=== PATIENT | male | born 1970 | race Caucasian/White ===

== ENCOUNTER → 2021-05-03 | Outpatient (CLI) | payer OTHER ==
--- NOTE | 2021-05-03 12:58 | DIREP ---
PROCEDURE:MRI SPINE LUMBAR W/O COMPARISON:None. INDICATIONS:RADICULOPATHY, LOW BACK PAIN TECHNIQUE:A comprehensive examination was performed utilizing a variety of imaging planes and imaging parameters to optimize visualization of suspected pathology. Images were performed without intravenous gadolinium contrast. FINDINGS: ALIGNMENT:4 mm retrolisthesis of L5 on S1. VERTEBRA:No fracture, pars defect, or osseous lesion. CORD/CAUDA EQUINA:Normal size, contour, and signal intensity. PARASPINAL AREA:Normal with no visible mass. OTHER:Incidental note made of disc bulges at T11-12.. LUMBAR DISC LEVELS T12-L1:No significant disc/facet abnormality, spinal stenosis, or foraminal stenosis. L1-L2:No significant disc/facet abnormality, spinal stenosis, or foraminal stenosis. L2-L3:No significant disc/facet abnormality, spinal stenosis, or foraminal stenosis. L3-L4:No significant disc abnormality, spinal stenosis or foraminal stenosis. Mild facet arthropathy. L4-L5:Disc bulge extending into the neural foramina. Moderate facet arthropathy. Findings combine to produce mild spinal stenosis and mild bilateral neural foraminal narrowing. L5-S1:Broad-based central/biforaminal disc protrusion extending into the floor of the neural foramina producing mild bilateral neural foraminal narrowing and mild central canal stenosis. Minimal facet arthropathy. Broad-based protrusion nearly contacts the traversing right S1 nerve root. CONCLUSION: 1. Broad-based L5-S1 disc protrusion nearly contacts the right S1 nerve root, correlate for right S1 radiculopathy. 2. Degenerative changes at L5-S1 producing mild bilateral neural foraminal narrowing and mild central canal stenosis. 3. Mild L4-5 spinal stenosis and mild L4-5 neural foraminal narrowing. 4. Retrolisthesis of L5 on S1 appears degenerative. Dictated by: Augie Saab M.D. on 05/03/2021 at 12:45 PM
== END | disposition home or self-care (01) ==
LOC: RAD 09:38
PROVIDERS: ATTEND Anesthesiology Pain Medicine
DX: M51.37 Other intervertebral disc degeneration, lumbosacral region (principal); M47.26 Other spondylosis with radiculopathy, lumbar region; M47.27 Other spondylosis with radiculopathy, lumbosacral region; M48.061 Spinal stenosis, lumbar region without neurogenic claudication; M51.36 Other intervertebral disc degeneration, lumbar region; M48.07 Spinal stenosis, lumbosacral region
CPT/HCPCS: 72148

== ENCOUNTER → 2021-12-30 | Outpatient (CLI) | payer OTHER ==
--- NOTE | 2021-12-30 12:54 | DIREP ---
PROCEDURE:XRAY SPINE LUMBAR COMPLETE W/ BENDING COMPARISON:None. INDICATIONS:M54.17 RADICULOPATHY TECHNIQUE:AP, lateral, L5-S1 spot views of lumbar spine. Flexion and extension views were also obtained. FINDINGS: ALIGNMENT:Preserved lordosis. VERTEBRAE:The vertebral heights are preserved. DISK SPACES:Disc space narrowing with a vacuum phenomenon at L5-S1. Mild facet hypertrophy at L4-5 and L5-S1. SPONDYLOLISTHESIS:No spondylolisthesis in neutral position. There is trace anterolisthesis of L4 on L5 during extension and flexion maneuvers which may represent some degree of ligamentous instability. SACROILIAC JOINTS:Normal. OTHER:Cholecystectomy clips. CONCLUSION: Mild degenerative change of the lower lumbar spine. Trace anterolisthesis of L4 on L5 during flexion and extension maneuvers which may be on the basis of ligamentous instability. Dictated by: Edilberto Calero MD on 12/30/2021 at 12:51 PM
== END | disposition home or self-care (01) ==
LOC: RAD 09:38
PROVIDERS: ATTEND Anesthesiology Pain Medicine
DX: M47.27 Other spondylosis with radiculopathy, lumbosacral region (principal); M40.46 Postural lordosis, lumbar region; M48.07 Spinal stenosis, lumbosacral region
CPT/HCPCS: 72114

== ENCOUNTER → 2022-01-24 | Outpatient (CLI) | payer OTHER ==
--- NOTE | 2022-01-24 16:04 | DIREP ---
PROCEDURE:MRI SPINE LUMBAR W/O COMPARISON:[facility], MR, MRI SPINE LUMBAR W/O, 05/03/2021, 10:07 AM. INDICATIONS:M54.17 RADICULOPATHY, LUMBOSACRAL REGION TECHNIQUE:A comprehensive examination was performed utilizing a variety of imaging planes and imaging parameters to optimize visualization of suspected pathology. Images were performed without intravenous gadolinium contrast. FINDINGS: ALIGNMENT:Normal. VERTEBRA:Normal vertebral body height. Mild anterior disc osteophyte complex formation largest at the L5-S1 level. Normal marrow signal. CORD/CAUDA EQUINA:Normal size, contour, and signal intensity. PARASPINAL AREA:Normal with no visible mass. OTHER:None. LUMBAR DISC LEVELS T12-L1:Mild bilateral facet arthrosis. L1-L2:Mild bilateral facet arthrosis. L2-L3:Mild bilateral facet arthrosis. L3-L4:Mild bilateral facet arthrosis. Small broad-based posterior disc protrusion. L4-L5:Moderate bilateral facet arthrosis with moderate ligamentum flavum redundancy. Mild broad-based posterior disc osteophyte complex. Mild bilateral neural foraminal narrowing.. L5-S1:Mild bilateral facet arthrosis. Broad-based posterior disc osteophyte complex. Mild to moderate bilateral neural foraminal narrowing, [id number]-right. CONCLUSION:1. Multilevel degenerative and discogenic changes. 2. Mild bilateral neural foramina narrowing at L4-5, with mild to moderate bilateral neural foraminal narrowing at L5-S1. Dictated by: Luis Gan M.D. on 01/24/2022 at 04:00 PM
== END | disposition home or self-care (01) ==
LOC: RAD 14:02
PROVIDERS: ATTEND Specialist
DX: M47.27 Other spondylosis with radiculopathy, lumbosacral region (principal); M48.07 Spinal stenosis, lumbosacral region
CPT/HCPCS: 72148

== ENCOUNTER → 2022-06-30 | Outpatient (CLI) | payer OTHER ==
--- NOTE | 2022-06-30 15:18 | DIREP ---
PROCEDURE:MRI - THORACIC SPINE WITHOUT CONTRAST COMPARISON:None. INDICATIONS:M54.6 PAIN IN THORACIC SPINE TECHNIQUE:A variety of imaging planes and parameters were utilized for visualization of suspected pathology about the thoracic spine. Images were performed without gadolinium contrast. FINDINGS VERTEBRAE:No visualized fracture or suspicious lesion. Normal vertebral body height. ALIGNMENT:Normal alignment. No listhesis. DISCS:Left paracentral/subarticular zone broad-based protrusion at T7-8 flattens the thecal sac with minimal cord flattening. Small left paracentral/subarticular zone broad-based protrusion at T8-9 with mild flattening of the thecal sac without cord contact but there appears to be mild cord flattening. Tiny central protrusion at T5-6 and small left foraminal T5-6 protrusion. SPINAL CORD/CONUS:Normal caliber, course, and signal. PARASPINAL AREA:No visualized lung or upper abdominal mass. CONCLUSION:Small protrusions at multiple levels, at T7-8 appears mildly flatten the cord on the left at T8-9 there is a protrusion on the left that does not touch the cord but the cord is slightly flattened at this location. Additional degenerative changes as detailed above. C4-5 and C5-6 dorsal disc osteophyte complex on the clinical data assistant images. Dictated by: Yovani Ramon M.D. on 06/30/2022 at 02:59 PM
== END | disposition home or self-care (01) ==
LOC: RAD 09:20
PROVIDERS: ATTEND Anesthesiology Pain Medicine
DX: M51.24 Other intervertebral disc displacement, thoracic region (principal); M47.814 Spondylosis without myelopathy or radiculopathy, thoracic region; M25.78 Osteophyte, vertebrae; M54.2 Cervicalgia
CPT/HCPCS: 72146